=== PATIENT | male | born 1980 | race Caucasian/White ===

== ENCOUNTER 2020-10-16 15:19 | Emergency (ER) | payer MEDICARE, MEDICAID, SELFPAY ==
--- NOTE | 2020-10-16 15:20 | ED.UPPEXIN ---
HPI - Extremity Injury (Upper) General Chief Complaint: Extremity Injury, Upper Stated Complaint: Lt hand Time Seen by Provider: 10/16/20 15:20 Source: patient and RN notes reviewed History of Present Illness HPI narrative: Patient is a 40-year-old male who presents the urgent care with complaints of left hand pain. Patient states that he was stung by a saltwater catfish approximately 1 week ago and he feels like the puncture site has continued to swell and be tender/painful. Patient denies of any fever, chills, nausea, vomiting. Patient states he has been cleaning it with peroxide. No other acute complaints or injuries. No acute distress noted. Patient aware of the plan of care. Some parts of this dictation were generated by voice recognition software and may contain typographical and/or grammatical inaccuracies. Related Data Home Medications Medication Instructions Recorded Confirmed alprazolam 1 mg PO DAILY 10/16/20 10/16/20 aripiprazole 5 mg PO DAILY 10/16/20 10/16/20 buspirone 10 mg PO BID 10/16/20 10/16/20 lithium carbonate 600 mg PO DAILY 10/16/20 10/16/20 Allergies Allergy/AdvReac Type Severity Reaction Status Date / Time No Known Allergies Allergy Verified 10/16/20 15:35 Review of Systems Review of Systems: Narrative: CONSTITUTIONAL: Denies fever, chills, or sweats. EYES: Denies visual changes, redness, or discharge. ENT: Denies rhinorrhea, congestion, sore throat, or otalgia. CARDIOVASCULAR: Denies chest pain, palpitations, or edema. RESPIRATORY: Denies cough or dyspnea. GASTROINTESTINAL: Denies abdominal pain, nausea, vomiting, or diarrhea. GENITOURINARY: Denies dysuria or hematuria. SKIN: Reports of a painful puncture wound to the left hand MUSCULOSKELETAL: Denies back pain, joint pain, or myalgia. NEUROLOGIC: Denies headache, numbness, or weakness. All other systems reviewed are negative, except as documented in HPI. [facility] Past Medical History Medical History (Updated 10/16/20 @ 15:34 by SUNG Velez) Schizophrenia Surgical History Surgical History (Updated 04/26/19 @ 05:52 by Max Patricio MD) History of orthopedic surgery Social History Social History (Updated 12/26/19 @ 05:52 by Max Patricio MD) Substance use: never Gender identity (if verbalized by the patient): Male Comments At the time of my signature, I reviewed and agree with the nursing past medical, surgical, social, and family history. There is no relevant family history pertinent to the patient complaint. Exam Narrative: Exam Narrative: GENERAL: This is a well-nourished, well-developed patient, in no apparent distress. HEAD: normocephalic, atraumatic. EYES: PERRL. Sclera clear/white. Vision is grossly intact. EARS: External ears normal NOSE: External nose normal with no obvious nasal discharge, nares without redness, no rhinorrhea. THROAT: Mucous membranes moist NECK: Neck supple CARDIOVASCULAR: Regular rate and rhythm without murmurs, gallops, or rubs. RESPIRATORY: Clear to auscultation. Breath sounds equal bilaterally. No wheezes, rales, or rhonchi. SKIN: 0.25 cm puncture wound to the thenar eminence of the left hand with mild edema without erythema or signs or symptoms of cellulitis wound slightly scabbed NEURO: awake, alert, and oriented to person, place and time. There were no obvious focal neurologic abnormalities. EXTREMITIES: Mild edema noted to the thenar eminence of the left hand without erythema, ecchymosis. Positive strong left radial pulse with capillary refill less than 2 seconds Course Vital Signs Vital signs: Vital Signs Temperature 98.4 F 10/16/20 15:22 Pulse Rate 98 10/16/20 15:22 Respiratory Rate 20 10/16/20 15:22 Blood Pressure 129/93 H 10/16/20 15:22 Pulse Oximetry 100 10/16/20 15:22 Temperature 98.4 F 10/16/20 15:35 Pulse Rate 98 10/16/20 15:35 Respiratory Rate 20 10/16/20 15:35 Blood Pressure 129/93 H 10/16/20 15:35 Pulse Oximetry 100
[2020-10-16 15:22] VITALS: BP 129/93; PULSE 98; RESP 20; TEMP 36.9; O2SAT 100
[2020-10-16 15:35] VITALS: BP 129/93; PULSE 98; RESP 20; TEMP 36.9; O2SAT 100
== END 2020-10-16 15:35 | disposition home or self-care (01) ==
PROVIDERS: Emergency Provider Nurse Practitioner Family
DX: S61.432A Puncture wound without foreign body of left hand, initial encounter (principal); W56.59XA Other contact with other fish, initial encounter; F20.9 Schizophrenia, unspecified
CPT/HCPCS: 99213; G0463